=== PATIENT | male | born 1980 | race Asian ===

== ENCOUNTER 2024-04-12 05:13 | Day surgery (SDC) | payer BC ==
[2024-04-12] MEDS: Dextrose 5%-0.45% NaCl 1,000 ML IV SCH (05:46)
[2024-04-12] MEDS ORDERED: Midazolam 1 MG/ML 2 ML SDV IV ONE (06:18)
[2024-04-12] MEDS ORDERED: fentaNYL 100 MCG/2 ML SDV IV ONE (06:18)
[2024-04-12] MEDS ORDERED: fentaNYL 100 MCG/2 ML SDV ONE (06:18)
[2024-04-12] MEDS ORDERED: Midazolam 1 MG/ML 2 ML SDV ONE (06:18)
[2024-04-12] MEDS: fentaNYL 100 MCG/2 ML SDV IV ONE ×2 (06:31→06:32)
[2024-04-12] MEDS: Midazolam 1 MG/ML 2 ML SDV IV ONE ×5 (06:32→06:43)
== END 2024-04-12 08:35 | disposition home or self-care (01) ==
LOC: DL.ENDO 05:13
PROVIDERS: ATTEND Internal Medicine Gastroenterology
DX: Z12.11 Encounter for screening for malignant neoplasm of colon (principal); D12.3 Benign neoplasm of transverse colon; K64.8 Other hemorrhoids
CPT/HCPCS: 45385; J2250; J3010; J7799